=== PATIENT | female | born 1940 | race African-American/Black ===

== ENCOUNTER 2017-03-08 21:21 | Emergency (ER) | payer MEDICAID, MEDICARE ==
[~2017-03-08] VITALS: Ht 160 cm; Wt 125.2 kg
[2017-03-08 23:59] VITALS: BP 157/63
== END 2017-03-09 00:15 | disposition home or self-care (01) ==
LOC: ER 21:42
DX: S00.93XA Contusion of unspecified part of head, initial encounter (principal); J32.9 Chronic sinusitis, unspecified; M19.90 Unspecified osteoarthritis, unspecified site; I10 Essential (primary) hypertension; E11.9 Type 2 diabetes mellitus without complications; W22.8XXA Striking against or struck by other objects, initial encounter; Y93.89 Activity, other specified; Y92.89 Other specified places as the place of occurrence of the external cause; Y99.8 Other external cause status
CPT/HCPCS: 70450; 82962

== ENCOUNTER 2023-11-18 19:49 | Inpatient (IN) | payer MEDICARE, MEDICAID ==
[~2023-11-18] VITALS: Ht 157.5 cm; Wt 119.1 kg
[2023-11-18 21:00] VITALS: RESP 26
[2023-11-18] MEDS: IOHEXOL 350 MG/ML 100ML IJ ONE (21:41)
[2023-11-18] MEDS: ONDANSETRON HCL 4 MG/2 ML VIAL IV ONE (22:20)
[2023-11-18] MEDS: PANTOPRAZOLE 40 MG/10 ML VIAL INJ IV ONE (22:20)
[2023-11-18] MEDS: SODIUM CHLORIDE 0.9% 1,000 ML IV ONE (22:20)
[2023-11-18] MEDS: cefTRIAXone 1GM/50ML D5W 50 ML IV ONE (22:20)
[2023-11-18 22:26] LABS: Basophils # (auto) 0 10 ^3/uL (0-0.2); Basophils % (auto) 0.2 % (0.0-2.0); Eosinophils # (auto) 0 10 ^3/uL (0-0.8); Eosinophils % (auto) 0.1 % (0.0-7.0); Hematocrit 45.5 % (36.0-46.0); Hemoglobin 14.5 g/dL (12.2-16.2); Lymphocytes # (auto) 1.1 10 ^3/uL (0.4-5.4); Lymphocytes % (auto) 9.3 % (10.0-50.0); Mean Corpuscular Hemoglobin 29.7 pg (28.0-32.0); Mean Corpuscular Hgb Conc. 31.9 g/dL (32.0-36.0); Mean Corpuscular Volume 93.2 fL (80.0-100.0); Monocytes # (auto) 0.6 10 ^3/uL (0-1.3); Monocytes % (auto) 5.3 % (0.0-12.0); Neutrophils # (auto) 10.1 10 ^3/uL (1.6-8.6); Neutrophils % (auto) 85.1 % (37.0-80.0); Nucleated Red Blood Cells % 0.1 %; Red Blood Cells 4.88 10^6/uL (4.0-5.20); Red Cell Distribution Width 15.1 % (11.8-14.3); White Blood Cell 11.9 10^3/uL (4.4-10.8)
[2023-11-18 22:42] LABS: Alanine Aminotransferase 19 U/L (7-40); Albumin 4.4 g/dL (3.2-4.8); Alkaline Phosphatase 83 U/L (46-116); Anion Gap 12 (5-15); Aspartate Aminotransferase 51 U/L (13-40); BUN/Creatinine Ratio 12.1 (10.0-20.0); Bilirubin, Total 0.5 mg/dL (0.2-1.0); Blood Alcohol < 3.0 mg/dL (<10); Blood Urea Nitrogen 25 mg/dL (9-23); Calcium 9.2 mg/dL (8.5-10.1); Carbon Dioxide 22 mmol/L (20-30); Chloride 102 mmol/L (98-107); Glucose 166 mg/dL (74-106); Potassium 4.4 mmol/L (3.5-5.1); Sodium 136 mmol/L (136-145); Total Protein 7.6 g/dL (5.7-8.2)
[2023-11-18 22:50] LABS: Salicylate < 3.0 mg/dL (2.8-20.0)
[2023-11-18 22:57] LABS: Lactic Acid w/Reflex 3.1 mmol/L (0.4-2.0)
[2023-11-18 23:04] LABS: Lipase 48 U/L (12-53)
[2023-11-18 23:05] LABS: Magnesium 2.5 mg/dL (1.6-2.6)
[2023-11-18 23:20] LABS: INR 1.01 (0.9-1.15); Partial Thromboplastin Time 24.8 SEC (24.5-34.5); Prothrombin Time 10.6 sec (9.3-11.8)
[2023-11-19] MEDS: SODIUM CHLORIDE 0.9% 3,550 ML IV ONE (03:00)
[2023-11-19 03:15] LABS: Amphetamine Screen, Urine Neg (NEGATIVE); Barbiturate Scree,Urine Neg (NEGATIVE); Benzodiazephine Screen, Urine Neg (NEGATIVE); Cannabinoid Screen, Urine Neg (NEGATIVE); Cocaine Screen, Urine Neg (NEGATIVE); Opiate Scree,Urine Neg (NEGATIVE); Phencyclidine Screen, Urine Neg (NEGATIVE)
[2023-11-19] MEDS ORDERED: VANCOMYCIN PER PHARMACY 0 MG IV SCH (03:15)
[2023-11-19] MEDS ORDERED: SODIUM CHLORIDE 0.9% IV ONE (03:15)
[2023-11-19 03:34] LABS: Urine Bacteria NONE SEEN /hpf (None Seen); Urine Blood Negative /uL (Negative); Urine Clarity HAZY (Clear); Urine Color Yellow (Yellow); Urine Hyaline Cast FEW /lpf (0 - 2); Urine Mucus FEW (None Seen); Urine Protein, UAD 1+ (Negative); Urine Specific Gravity 1.025 (1.001-1.035); Urine WBC 1 /hpf (0 - 5)
[2023-11-19 04:03] LABS: Rapid Influenza B Negative (Negative)
[2023-11-19 04:04] LABS: COVID19 ANTIGEN SOFIA FIA NEGATIVE (NEGATIVE); Rapid Influenza A Positive (Negative)
[2023-11-19] MEDS ORDERED: NITROGLYCERIN 0.4 MG SL TAB SL PRN (04:15)
[2023-11-19] MEDS ORDERED: DEXTROSE (50%) 50ML SYRG IV PRN ×2 (04:15→04:30)
[2023-11-19] MEDS ORDERED: ACETAMINOPHEN 325 MG TAB PO PRN (04:15)
[2023-11-19] MEDS ORDERED: ONDANSETRON HCL 4 MG/2 ML VIAL IV PRN ×2 (04:15→04:30)
[2023-11-19] MEDS ORDERED: SODIUM CHLORIDE 0.9% 1,000 ML IV SCH (04:15)
[2023-11-19] MEDS ORDERED: HYDROcodone-ACET 5/325MG TAB PO PRN ×2 (04:15→04:30)
[2023-11-19] MEDS: VANCOMYCIN 1GM/200ML 200 ML IV SCH (04:33)
[2023-11-19] MEDS: SODIUM CHLORIDE 0.9% 1,000 ML IV SCH ×2 (04:48→16:57)
[2023-11-19 05:37] LABS: Lactic Acid w/Reflex 2.1 mmol/L (0.4-2.0)
[2023-11-19] MEDS: ACETAMINOPHEN 325 MG TAB PO PRN (05:57)
[2023-11-19] MEDS ORDERED: InsuLIN REG 1unit/0.01ml Soln (100units/ml) SC SCH (06:00)
[2023-11-19] MEDS ORDERED: ACCU-CHEK COMFORT CURVE STRIP VI SCH (06:00)
[2023-11-19] MEDS: ACCU-CHEK COMFORT CURVE STRIP VI SCH (06:32)
[2023-11-19] MEDS: LEVOTHYROXINE SODIUM 25 MCG TAB PO SCH (06:34)
[2023-11-19] MEDS: InsuLIN REG 1unit/0.01ml Soln (100units/ml) SC SCH (06:34)
[2023-11-19] MEDS ORDERED: LEVOTHYROXINE SODIUM 25 MCG TAB PO SCH (07:00)
[2023-11-19 07:36] VITALS: PULSE 85; RESP 20; O2SAT 98
[2023-11-19] MEDS ORDERED: cefTRIAXone 1GM/50ML D5W 50 ML IV SCH ×2 (09:00→22:00)
[2023-11-19] MEDS: ASPirin 81 mg TAB PO SCH (09:15)
[2023-11-19] MEDS ORDERED: LORazepam 2MG/ML-1ML VIAL IV PRN (09:45)
[2023-11-19] MEDS ORDERED: ASPirin 81 mg TAB PO SCH (10:00)
[2023-11-19 11:46] LABS: Chloride 109 mmol/L (98-107); Potassium 4.8 mmol/L (3.5-5.1); Sodium 139 mmol/L (136-145)
[2023-11-19 11:47] LABS: Anion Gap 13 (5-15); Carbon Dioxide 17 mmol/L (20-30)
[2023-11-19 11:48] LABS: Calcium 7.9 mg/dL (8.5-10.1)
[2023-11-19 11:52] LABS: Glucose 190 mg/dL (74-106)
[2023-11-19 11:53] LABS: BUN/Creatinine Ratio 14.3 (10.0-20.0); Blood Urea Nitrogen 32 mg/dL (9-23)
[2023-11-19 12:34] LABS: Folate (Folic Acid) 17.25 ng/mL (>5.38)
[2023-11-19 13:41] LABS: CRP High Sensitivity 10.92 mg/dL (<1.0)
[2023-11-19] MEDS ORDERED: metroNIDAZOLE 500MG/100ML 100 ML IV SCH (14:00)
[2023-11-19 14:25] LABS: Magnesium 2.5 mg/dL (1.6-2.6)
[2023-11-19 15:00] VITALS: PULSE 83; RESP 17; O2SAT 97
[2023-11-19] MEDS: DOXYCYCLINE 100MG/250ML 250 ML IV SCH (16:29)
[2023-11-19] MEDS: SODIUM CHLORIDE 0.9% 500 ML IV ONE (16:29)
[2023-11-19] MEDS: OSELTAMIVIR 30 MG CAP PO ONE (16:31)
[2023-11-19 20:00] VITALS: PULSE 88; RESP 17; O2SAT 98
[2023-11-19] MEDS ORDERED: ATORVASTATIN 20 MG TAB PO SCH (22:00)
[2023-11-19] MEDS: PIPERACILLIN-TAZOB 3.375GM 100 ML IV SCH (22:27)
[2023-11-19] MEDS: ATORVASTATIN 20 MG TAB PO SCH (22:27)
[2023-11-20] MEDS: LEVOTHYROXINE SODIUM 50 MCG TAB PO SCH (07:00)
[2023-11-20 07:40] VITALS: RESP 17; O2SAT 97
[2023-11-20 07:57] LABS: Alanine Aminotransferase 19 U/L (7-40); Albumin 3.7 g/dL (3.2-4.8); Alkaline Phosphatase 61 U/L (46-116); Anion Gap 13 (5-15); Aspartate Aminotransferase 64 U/L (13-40); BUN/Creatinine Ratio 15.9 (10.0-20.0); Basophils # (auto) 0 10 ^3/uL (0-0.2); Basophils % (auto) 0.1 % (0.0-2.0); Calcium 8.3 mg/dL (8.5-10.1); Carbon Dioxide 16 mmol/L (20-30); Chloride 110 mmol/L (98-107); Eosinophils # (auto) 0 10 ^3/uL (0-0.8); Eosinophils % (auto) 0.1 % (0.0-7.0); Glucose 190 mg/dL (74-106); Hematocrit 42.1 % (36.0-46.0); Hemoglobin 13.3 g/dL (12.2-16.2); Lymphocytes # (auto) 0.9 10 ^3/uL (0.4-5.4); Lymphocytes % (auto) 8.8 % (10.0-50.0); Mean Corpuscular Hemoglobin 29.3 pg (28.0-32.0); Mean Corpuscular Hgb Conc. 31.5 g/dL (32.0-36.0); Mean Corpuscular Volume 92.9 fL (80.0-100.0); Monocytes # (auto) 1.4 10 ^3/uL (0-1.3); Monocytes % (auto) 14.2 % (0.0-12.0); Neutrophils # (auto) 7.7 10 ^3/uL (1.6-8.6); Neutrophils % (auto) 76.8 % (37.0-80.0); Potassium 4.8 mmol/L (3.5-5.1); Red Blood Cells 4.53 10^6/uL (4.0-5.20); Red Cell Distribution Width 15.1 % (11.8-14.3); Sodium 139 mmol/L (136-145)
[2023-11-20 07:58] LABS: Bilirubin, Total 0.5 mg/dL (0.2-1.0); Blood Urea Nitrogen 46 mg/dL (9-23); Phosphorus 6.2 mg/dL (2.4-5.1); Total Protein 6.4 g/dL (5.7-8.2)
[2023-11-20 08:06] LABS: Free Thyroxine Index 1.6 (1.2-4.9); Thyroxine (T4) 4.9 ug/dL (4.5-12.0)
[2023-11-20 08:06] LABS: CRP High Sensitivity > 20.00 mg/dL (<1.0)
[2023-11-20 08:57] LABS: Magnesium 2.7 mg/dL (1.6-2.6)
[2023-11-20 09:02] LABS: Base Excess -9.8 mmol/L (-2.0-2.0)
[2023-11-20] MEDS: OSELTAMIVIR 30 MG CAP PO SCH (10:00)
[2023-11-20] MEDS: PANTOPRAZOLE 40 MG/10 ML VIAL INJ IV SCH (10:00)
[2023-11-20] MEDS: SODIUM CHLORIDE 0.9% 1,000 ML IV ONE (11:00)
[2023-11-20] MEDS: SODIUM BICARB 8.4% 50Meq/50ml SYR Vial IV ONE (18:46)
[2023-11-20 18:58] LABS: Creatinine, Urine 121.96 mg/dL (30.0-125.0)
[2023-11-20 20:00] VITALS: PULSE 91; RESP 19; O2SAT 96
[2023-11-21 05:08] LABS: Basophils # (auto) 0 10 ^3/uL (0-0.2); Basophils % (auto) 0.1 % (0.0-2.0); Eosinophils # (auto) 0 10 ^3/uL (0-0.8); Hematocrit 37.4 % (36.0-46.0); Lymphocytes # (auto) 0.8 10 ^3/uL (0.4-5.4); Lymphocytes % (auto) 10.3 % (10.0-50.0); Mean Corpuscular Hemoglobin 29.5 pg (28.0-32.0); Mean Corpuscular Volume 92.1 fL (80.0-100.0); Monocytes # (auto) 0.8 10 ^3/uL (0-1.3); Monocytes % (auto) 11.3 % (0.0-12.0); Neutrophils # (auto) 5.8 10 ^3/uL (1.6-8.6); Neutrophils % (auto) 78.3 % (37.0-80.0); Red Blood Cells 4.06 10^6/uL (4.0-5.20); Red Cell Distribution Width 15.6 % (11.8-14.3); White Blood Cell 7.4 10^3/uL (4.4-10.8)
[2023-11-21 05:20] LABS: Alanine Aminotransferase 30 U/L (7-40); Alkaline Phosphatase 51 U/L (46-116); Anion Gap 12 (5-15); BUN/Creatinine Ratio 11.9 (10.0-20.0); Calcium 7.8 mg/dL (8.7-10.4); Carbon Dioxide 16 mmol/L (20-30); Chloride 111 mmol/L (98-107); Glucose 176 mg/dL (74-106); Potassium 4.5 mmol/L (3.5-5.1); Sodium 139 mmol/L (136-145)
[2023-11-21 05:21] LABS: Albumin 3.2 g/dL (3.2-4.8); Aspartate Aminotransferase 119 U/L (13-40); Bilirubin, Total 0.6 mg/dL (0.2-1.0); Total Protein 5.9 g/dL (5.7-8.2)
[2023-11-21 05:24] LABS: Blood Urea Nitrogen 62 mg/dL (9-23)
[2023-11-21 05:32] LABS: Creatine Kinase IFCC 3542 U/L (34-145)
[2023-11-21 06:19] LABS: CRP High Sensitivity > 20.00 mg/dL (<1.0)
[2023-11-21 08:00] VITALS: PULSE 87; RESP 22; O2SAT 95
[2023-11-21] MEDS: CYANOCOBALAMIN 500 MCG TAB PO SCH (10:00)
[2023-11-21] MEDS ORDERED: VANCOMYCIN PER PHARMACY 0 MG IV SCH (10:15)
[2023-11-21 11:15] LABS: Base Excess -10.3 mmol/L (-2.0-2.0)
[2023-11-21] MEDS ORDERED: SUCRALFATE 1 GM/10 ML ORAL SUSP GT SCH (11:30)
[2023-11-21] MEDS: SODIUM CHLORIDE 0.9% 1,000 ML IV SCH (11:36)
[2023-11-21] MEDS: PANTOPRAZOLE 40 MG/10 ML VIAL INJ IV SCH (11:37)
[2023-11-21] MEDS: LEVOTHYROXINE SODIUM 100 MCG/5 ML INJ IV SCH (11:37)
[2023-11-21] MEDS: CYANOCOBALAMIN (B-12) 1000 MCG/1 ML VIAL IM ONE (11:37)
[2023-11-21] MEDS: cefTRIAXone 2GM/50ML D5W 50 ML IV ONE (11:38)
[2023-11-21] MEDS: AMPICILLIN SOD 2GM INJ 2 GM in SODIUM CHL 0.9% 100 ML IV ONE (12:04)
[2023-11-21] MEDS: SODIUM BICARB 8.4% 50Meq/50ml SYR Vial IV ONE ×2 (14:00→18:38)
[2023-11-21] MEDS: VANCOMYCIN 1GM/200ML 200 ML IV ONE (15:00)
[2023-11-21] MEDS: SODIUM BICARB 50mEq/50ml Vial 150 ML in D5W 5% 1,000 ML IV SCH (20:23)
[2023-11-21] MEDS: cefTRIAXone 2GM/50ML D5W 50 ML IV SCH (21:26)
[2023-11-21] MEDS: AMPICILLIN SOD 2GM INJ 2 GM in SODIUM CHL 0.9% 100 ML IV SCH (22:00)
[2023-11-22 05:15] LABS: Hematocrit 34.3 % (36.0-46.0); Hemoglobin 11.2 g/dL (12.2-16.2); Mean Corpuscular Hemoglobin 29.9 pg (28.0-32.0); Mean Corpuscular Hgb Conc. 32.7 g/dL (32.0-36.0); Mean Corpuscular Volume 91.3 fL (80.0-100.0); Red Blood Cells 3.76 10^6/uL (4.0-5.20); Red Cell Distribution Width 15.3 % (11.8-14.3); White Blood Cell 6.4 10^3/uL (4.4-10.8)
[2023-11-22 05:21] LABS: Alanine Aminotransferase 37 U/L (7-40); Alkaline Phosphatase 56 U/L (46-116); Anion Gap 16 (5-15); Aspartate Aminotransferase 134 U/L (13-40); BUN/Creatinine Ratio 14.9 (10.0-20.0); Bilirubin, Total 0.4 mg/dL (0.2-1.0); Calcium 7.8 mg/dL (8.7-10.4); Carbon Dioxide 19 mmol/L (20-30); Chloride 109 mmol/L (98-107); Glucose 187 mg/dL (74-106); Magnesium 3.2 mg/dL (1.6-2.6); Phosphorus 8.4 mg/dL (2.4-5.1); Potassium 4.5 mmol/L (3.5-5.1); Sodium 144 mmol/L (136-145); Total Protein 5.5 g/dL (5.7-8.2)
[2023-11-22 05:28] LABS: Basophils % (manual) 0 (0.0-2.0); Blast Cells 0; Eosinophils % (manual) 0 (0-7); Promyelocytes % 0; Reactive Lymphocytes 0
[2023-11-22 05:30] LABS: INR 0.97 (0.9-1.15); Partial Thromboplastin Time 37.8 SEC (24.5-34.5); Prothrombin Time 10.2 sec (9.3-11.8)
[2023-11-22 05:32] LABS: Creatine Kinase IFCC 2659 U/L (34-145)
[2023-11-22 05:46] LABS: Blood Urea Nitrogen 104 mg/dL (9-23)
[2023-11-22 07:06] LABS: RPR Non Reactive (Non Reactive)
[2023-11-22 07:45] VITALS: PULSE 89; RESP 18; O2SAT 98
[2023-11-22 08:11] LABS: Band Neutrophils % (manual) 1; Lymphocytes % (manual) 12 (10.0-50.0); Metamyelocytes % 1; Monocytes % (manual) 16 (0-12); Myelocytes % 2
[2023-11-22 08:12] LABS: Platelet Estimate Adequate; RBC Morphology Normal
[2023-11-22 08:19] LABS: Hepatitis B Surface Antigen Negative (Negative)
[2023-11-22 08:41] LABS: Hepatitis B Core IgM Negative; Hepatitis C Antibody Negative (Negative)
[2023-11-22] MEDS ORDERED: SODIUM CHLORIDE 0.9% 1,000 ML IV SCH (09:00)
[2023-11-22 11:45] LABS: Hepatitis A Ab IgM Positive
[2023-11-22] MEDS: THIAMINE 100mg/ml INJ (200mg/2ml VIAL) IV SCH (11:46)
[2023-11-22] MEDS: HYDROmorphone HCL 2 MG/ML VL/or syr IV ONE (15:51)
[2023-11-22] MEDS: MORPHINE SULFATE INJ 2 MG/ml SYRG IV PRN (18:15)
[2023-11-22 19:30] VITALS: PULSE 87; RESP 14; O2SAT 99
[2023-11-22] MEDS: MIDAZOLAM HCL 2MG/2ML 2ml VIAL (1mg/ml) ONE (20:10)
[2023-11-22] MEDS: fentaNYL CITRATE 100 MCG/2 ML VL ONE (20:10)
[2023-11-23] VITALS (46 sets, daily range): BP systolic 106–153; BP diastolic 26–64; PULSE 81–129; RESP 14–24; TEMP 97.5–97.7; O2SAT 76–100
[2023-11-23] MEDS: ACETAMINOPHEN 650 MG RECT SUPP PR ONE
[2023-11-23 05:51] LABS: Base Excess -8.6 mmol/L (-2.0-2.0)
[2023-11-23] MEDS: AMIODARONE 450mg/250ml AE 250 ML IV SCH ×2 (07:00→15:22)
[2023-11-23] MEDS: NOREPINEPHRINE 8 MG/250ML KIT 250 ML IV ONE (08:11)
[2023-11-23] MEDS: NOREPINEPHRINE 8 MG/250ML KIT 250 ML IV SCH (09:01)
[2023-11-23 09:13] LABS: Basophils # (auto) 0 10 ^3/uL (0-0.2); Basophils % (auto) 0.2 % (0.0-2.0); Eosinophils # (auto) 0 10 ^3/uL (0-0.8); Eosinophils % (auto) 0.2 % (0.0-7.0); Hematocrit 35.8 % (36.0-46.0); Hemoglobin 11.5 g/dL (12.2-16.2); Lymphocytes # (auto) 0.6 10 ^3/uL (0.4-5.4); Lymphocytes % (auto) 6.9 % (10.0-50.0); Mean Corpuscular Hemoglobin 29.4 pg (28.0-32.0); Mean Corpuscular Hgb Conc. 32.1 g/dL (32.0-36.0); Mean Corpuscular Volume 91.4 fL (80.0-100.0); Monocytes # (auto) 0.9 10 ^3/uL (0-1.3); Monocytes % (auto) 9.9 % (0.0-12.0); Neutrophils # (auto) 7.6 10 ^3/uL (1.6-8.6); Neutrophils % (auto) 82.8 % (37.0-80.0); Nucleated Red Blood Cells % 0.2 %; Red Blood Cells 3.92 10^6/uL (4.0-5.20); Red Cell Distribution Width 15.7 % (11.8-14.3); White Blood Cell 9.2 10^3/uL (4.4-10.8)
[2023-11-23 09:26] LABS: Alanine Aminotransferase 43 U/L (7-40); Alkaline Phosphatase 59 U/L (46-116); Anion Gap 19 (5-15); Aspartate Aminotransferase 123 U/L (13-40); BUN/Creatinine Ratio 14.9 (10.0-20.0); Bilirubin, Total 0.3 mg/dL (0.2-1.0); Calcium 8.4 mg/dL (8.5-10.1); Carbon Dioxide 19 mmol/L (20-30); Chloride 107 mmol/L (98-107); Glucose 162 mg/dL (74-106); Potassium 4.4 mmol/L (3.5-5.1); Sodium 145 mmol/L (136-145); Total Protein 5.1 g/dL (5.7-8.2)
[2023-11-23 09:29] LABS: Blood Urea Nitrogen 127 mg/dL (9-23); INR 1.11 (0.9-1.15); Partial Thromboplastin Time 25.9 SEC (24.5-34.5); Prothrombin Time 11.6 sec (9.3-11.8)
[2023-11-23] MEDS: GASTROGRAFIN 120 ML SOL ONE (10:16)
[2023-11-23 10:17] LABS: Magnesium 3.3 mg/dL (1.6-2.6)
[2023-11-23] MEDS ORDERED: ROCURONIUM 10MG/ML 10ML VIAL IV ONE ×2 (11:40→13:44)
[2023-11-23] MEDS ORDERED: KETAMINE 50mg/ML 10ml Vial 10 ML ONE (11:40)
[2023-11-23] MEDS ORDERED: MEPERIDINE HCL (50 MG/ML) 1 ML VIAL ONE (11:40)
[2023-11-23] MEDS ORDERED: ETOMIDATE (2MG/ML) 20ML VIAL IV ONE (11:40)
[2023-11-23] MEDS ORDERED: MIDAZOLAM HCL 2MG/2ML 2ml VIAL (1mg/ml) ONE ×2 (11:40→13:44)
[2023-11-23] MEDS ORDERED: MORPHINE SULF PF 5 MG/10 ML VIAL ONE (11:40)
[2023-11-23] MEDS ORDERED: fentaNYL CITRATE 100 MCG/2 ML VL ONE (11:40)
[2023-11-23] MEDS ORDERED: HYDROmorphone HCL 2 MG/ML VL/or syr ONE (13:44)
[2023-11-23] MEDS: metroNIDAZOLE 500MG/100ML 100 ML IV SCH (14:00)
[2023-11-23] MEDS: MIDAZOLAM DRIP 50 mg/50mL 50 ML IV SCH (14:15)
[2023-11-23] MEDS: HYDROmorphone HCL 2 MG/ML VL/or syr IV ONE (14:15)
[2023-11-23] MEDS: fentaNYL Drip 2500mCg/250mlNS 250 ML IV SCH (15:30)
[2023-11-23] MEDS: PROPOFOL 100 ML IV SCH (15:30)
[2023-11-23 16:11] LABS: Base Excess -9.7 mmol/L (-2.0-2.0)
[2023-11-23] MEDS: cefTRIAXone 2GM/50ML D5W 50 ML IV SCH (16:42)
[2023-11-23] MEDS: VANCOMYCIN 500 MG in D5W 5% 100 ML IV ONE (17:00)
[2023-11-23] MEDS: SODIUM BICARB 8.4% 50Meq/50ml SYR Vial IV ONE (17:15)
[2023-11-23] MEDS: FOLIC ACID 1 MG, MULTIPLE VITAMIN 10 ML, THIAMINE INJ 100 MG in D5W/SOD CHL 0.45% 1,000 ML INJ ONE (18:00)
[2023-11-23 21:55] LABS: Urine Bacteria MANY /hpf (None Seen); Urine Blood 3+ /uL (Negative); Urine Clarity CLOUDY (Clear); Urine Color Red (Yellow); Urine Protein, UAD 2+ (Negative); Urine Specific Gravity 1.021 (1.001-1.035); Urine Urobilinogen Normal (Negative); Urine WBC 127 /hpf (0 - 5); Urine WBC Clumps PRESENT /hpf (None Seen); Urine pH 5.5 (5.0-8.0)
[2023-11-24] VITALS (107 sets, daily range): BP systolic 101–178; BP diastolic 22–73; PULSE 73–89; RESP 12–28; TEMP 97.7–98.2; O2SAT 90–100
[2023-11-24] MEDS: SODIUM BICARB 8.4% 50Meq/50ml SYR Vial IV ONE (00:34)
[2023-11-24 04:09] LABS: Hematocrit 29.7 % (36.0-46.0); Hemoglobin 9.8 g/dL (12.2-16.2); Mean Corpuscular Hemoglobin 29.8 pg (28.0-32.0); Mean Corpuscular Hgb Conc. 33.2 g/dL (32.0-36.0); Mean Corpuscular Volume 89.7 fL (80.0-100.0); Red Blood Cells 3.31 10^6/uL (4.0-5.20); Red Cell Distribution Width 15.4 % (11.8-14.3); White Blood Cell 10.6 10^3/uL (4.4-10.8)
[2023-11-24 04:14] LABS: Alanine Aminotransferase 29 U/L (7-40); Albumin 2.6 g/dL (3.2-4.8); Alkaline Phosphatase 53 U/L (46-116); Anion Gap 17 (5-15); Aspartate Aminotransferase 70 U/L (13-40); BUN/Creatinine Ratio 12.6 (10.0-20.0); Bilirubin, Total 0.2 mg/dL (0.2-1.0); Calcium 7.7 mg/dL (8.7-10.4); Carbon Dioxide 22 mmol/L (20-30); Chloride 103 mmol/L (98-107); Glucose 305 mg/dL (74-106); Magnesium 2.9 mg/dL (1.6-2.6); Phosphorus 8.4 mg/dL (2.4-5.1); Sodium 142 mmol/L (136-145); Total Protein 5.1 g/dL (5.7-8.2)
[2023-11-24 04:18] LABS: Basophils % (manual) 0 (0.0-2.0); Blast Cells 0; Eosinophils % (manual) 0 (0-7); Metamyelocytes % 0; Myelocytes % 0; Promyelocytes % 0; Reactive Lymphocytes 0
[2023-11-24 04:19] LABS: Blood Urea Nitrogen 103 mg/dL (9-23)
[2023-11-24 04:27] LABS: INR 1.06 (0.9-1.15); Partial Thromboplastin Time 37.6 SEC (24.5-34.5); Prothrombin Time 11.1 sec (9.3-11.8)
[2023-11-24 04:35] LABS: Band Neutrophils % (manual) 49; Lymphocytes % (manual) 13 (10.0-50.0); Monocytes % (manual) 8 (0-12); Platelet Estimate Adequate
[2023-11-24] MEDS: MORPHINE SULFATE 4 MG/ML SYR/VIAL IV PRN (06:01)
[2023-11-24 07:15] LABS: Base Excess -4.4 mmol/L (-2.0-2.0)
[2023-11-24] MEDS: FOLIC ACID 1 MG, MULTIPLE VITAMIN 10 ML, MAGNESIUM SULF SDV 50% 8 MEQ, THIAMINE INJ 100... INJ SCH (15:25)
[2023-11-24] MEDS ORDERED: VANCOMYCIN 500 MG in D5W 5% 100 ML IV ONE (22:00)
[2023-11-25] VITALS (108 sets, daily range): BP systolic 67–178; BP diastolic 24–64; PULSE 71–132; RESP 13–20; TEMP 97.8–98.8; O2SAT 89–100
[2023-11-25 04:25] LABS: Alanine Aminotransferase 24 U/L (7-40); Alkaline Phosphatase 66 U/L (46-116); Anion Gap 16 (5-15); BUN/Creatinine Ratio 12.5 (10.0-20.0); Calcium 7.7 mg/dL (8.7-10.4); Carbon Dioxide 23 mmol/L (20-30); Chloride 102 mmol/L (98-107); Glucose 150 mg/dL (74-106); Lipase 36 U/L (12-53); Potassium 3.9 mmol/L (3.5-5.1); Sodium 141 mmol/L (136-145)
[2023-11-25 04:26] LABS: Albumin 2.5 g/dL (3.2-4.8)
[2023-11-25 04:27] LABS: Aspartate Aminotransferase 62 U/L (13-40); Bilirubin, Total < 0.2 mg/dL (0.2-1.0); Total Protein 4.8 g/dL (5.7-8.2)
[2023-11-25 04:28] LABS: Basophils # (auto) 0 10 ^3/uL (0-0.2); Eosinophils # (auto) 0.1 10 ^3/uL (0-0.8); Hemoglobin 8.2 g/dL (12.2-16.2); Mean Corpuscular Hemoglobin 29.8 pg (28.0-32.0); Monocytes # (auto) 0.6 10 ^3/uL (0-1.3); Nucleated Red Blood Cells % 0.1 %; White Blood Cell 13.4 10^3/uL (4.4-10.8)
[2023-11-25 04:31] LABS: Basophils % (auto) 0.1 % (0.0-2.0); Hematocrit 24.7 % (36.0-46.0); Lymphocytes % (auto) 7.5 % (10.0-50.0); Mean Corpuscular Hgb Conc. 33.3 g/dL (32.0-36.0); Mean Corpuscular Volume 89.6 fL (80.0-100.0); Monocytes % (auto) 4.6 % (0.0-12.0); Neutrophils # (auto) 11.6 10 ^3/uL (1.6-8.6); Neutrophils % (auto) 86.8 % (37.0-80.0); Red Blood Cells 2.75 10^6/uL (4.0-5.20); Red Cell Distribution Width 15.2 % (11.8-14.3)
[2023-11-25 05:07] LABS: Blood Urea Nitrogen 106 mg/dL (9-23)
[2023-11-25 05:24] LABS: INR 1.02 (0.9-1.15); Prothrombin Time 10.7 sec (9.3-11.8)
[2023-11-25 06:32] LABS: Triglycerides 90 mg/dL (< 150)
[2023-11-25 06:33] LABS: LDL Cholesterol 20 mg/dL (< 100)
[2023-11-25 06:34] LABS: Cholesterol 75 mg/dL (< 200); HDL Cholesterol 17 mg/dL (40-59)
[2023-11-25] MEDS: VANCOMYCIN 500 MG in D5W 5% 100 ML IV ONE (10:48)
[2023-11-26] VITALS (104 sets, daily range): BP systolic 53–200; BP diastolic 21–64; PULSE 63–97; RESP 12–32; TEMP 97.8–99.8; O2SAT 90–100
[2023-11-26 04:51] LABS: Red Cell Distribution Width 15.4 % (11.8-14.3)
[2023-11-26 04:53] LABS: Hematocrit 24.4 % (36.0-46.0); Mean Corpuscular Hemoglobin 29.5 pg (28.0-32.0); Mean Corpuscular Hgb Conc. 32.8 g/dL (32.0-36.0); Red Blood Cells 2.71 10^6/uL (4.0-5.20); White Blood Cell 17.2 10^3/uL (4.4-10.8)
[2023-11-26 04:58] LABS: Alanine Aminotransferase 22 U/L (7-40); Albumin 2.4 g/dL (3.2-4.8); Alkaline Phosphatase 101 U/L (46-116); Anion Gap 16 (5-15); Aspartate Aminotransferase 50 U/L (13-40); BUN/Creatinine Ratio 11.8 (10.0-20.0); Calcium 7.7 mg/dL (8.7-10.4); Carbon Dioxide 22 mmol/L (20-30); Chloride 102 mmol/L (98-107); Glucose 154 mg/dL (74-106); Magnesium 3.1 mg/dL (1.6-2.6); Potassium 3.6 mmol/L (3.5-5.1); Sodium 140 mmol/L (136-145)
[2023-11-26 04:59] LABS: Bilirubin, Total 0.2 mg/dL (0.2-1.0); Total Protein 4.9 g/dL (5.7-8.2)
[2023-11-26 05:08] LABS: Basophils % (manual) 0 (0.0-2.0); Blast Cells 0; Metamyelocytes % 0; Myelocytes % 0; Promyelocytes % 0; Reactive Lymphocytes 0
[2023-11-26 05:18] LABS: Blood Urea Nitrogen 107 mg/dL (9-23)
[2023-11-26 06:41] LABS: Band Neutrophils % (manual) 11; Eosinophils % (manual) 2 (0-7); Lymphocytes % (manual) 9 (10.0-50.0)
[2023-11-26 06:42] LABS: Monocytes % (manual) 7 (0-12); Platelet Estimate Adequate
[2023-11-26 07:03] LABS: Base Excess -6.1 mmol/L (-2.0-2.0)
[2023-11-26] MEDS: DOPamine 1600MCG/ML D5W 250 ML IV SCH (12:00)
[2023-11-26] MEDS: fentaNYL CITRATE 100 MCG/2 ML VL ONE (12:39)
[2023-11-26] MEDS: HEPARIN 1,000 UNITS/ml 1ML VIAL ONE (13:02)
[2023-11-26] MEDS: fentaNYL CITRATE 100 MCG/2 ML VL IV ONE (13:30)
[2023-11-26] MEDS: HEPARIN 1,000 UNITS/ml 1ML VIAL IV ONE (13:30)
[2023-11-26] MEDS: CALCIUM ACETATE 667 MG CAP NG SCH (14:00)
[2023-11-26 17:23] LABS: Hemoglobin 7.9 g/dL (12.2-16.2)
[2023-11-26 17:26] LABS: Hematocrit 24.9 % (36.0-46.0)
[2023-11-26] MEDS: VANCOMYCIN 1GM/200ML 200 ML IV ONE (18:22)
[2023-11-27] VITALS (106 sets, daily range): BP systolic 93–164; BP diastolic 22–56; PULSE 62–82; RESP 11–26; TEMP 96.8–98.6; O2SAT 91–100
[2023-11-27 04:13] LABS: Hemoglobin 8.1 g/dL (12.2-16.2)
[2023-11-27 04:16] LABS: Hematocrit 24.7 % (36.0-46.0); Mean Corpuscular Hemoglobin 29.4 pg (28.0-32.0); Mean Corpuscular Hgb Conc. 32.6 g/dL (32.0-36.0); Mean Corpuscular Volume 90.1 fL (80.0-100.0); Red Blood Cells 2.75 10^6/uL (4.0-5.20); Red Cell Distribution Width 15.3 % (11.8-14.3); White Blood Cell 14.2 10^3/uL (4.4-10.8)
[2023-11-27 04:17] LABS: Basophils % (manual) 0 (0.0-2.0); Blast Cells 0; Eosinophils % (manual) 0 (0-7); Myelocytes % 0; Promyelocytes % 0; Reactive Lymphocytes 0
[2023-11-27 04:27] LABS: Alanine Aminotransferase 23 U/L (7-40); Albumin 2.4 g/dL (3.2-4.8); Alkaline Phosphatase 96 U/L (46-116); Anion Gap 17 (5-15); Aspartate Aminotransferase 48 U/L (13-40); BUN/Creatinine Ratio 12.4 (10.0-20.0); Bilirubin, Total < 0.2 mg/dL (0.2-1.0); Calcium 7.6 mg/dL (8.7-10.4); Carbon Dioxide 20 mmol/L (20-30); Chloride 102 mmol/L (98-107); Glucose 152 mg/dL (74-106); Magnesium 3.1 mg/dL (1.6-2.6); Potassium 3.8 mmol/L (3.5-5.1); Sodium 139 mmol/L (136-145)
[2023-11-27 04:48] LABS: Blood Urea Nitrogen 115 mg/dL (9-23)
[2023-11-27 06:11] LABS: Band Neutrophils % (manual) 12; Lymphocytes % (manual) 5 (10.0-50.0); Metamyelocytes % 1; Monocytes % (manual) 2 (0-12); Platelet Estimate Adequate
[2023-11-27] MEDS: SODIUM CHL 0.9% 1000 ML BAG XX ONE (08:00)
[2023-11-27] MEDS ORDERED: LIDOCAINE 2% JELLY 11ml (GLYDO) ONE (08:14)
[2023-11-27] MEDS ORDERED: LIDOCAINE 2%HCL (LOCAL ANESTH.) INJ 20ML MDV ONE (08:14)
[2023-11-27] MEDS ORDERED: GLYCOPYRROLATE 0.2 MG/ML 1ML VIAL ONE (08:15)
[2023-11-27] MEDS ORDERED: MIDAZOLAM HCL 5 MG/ML-1ML VIAL ONE (08:15)
[2023-11-27] MEDS ORDERED: EPINEPHrine HCL 1 MG/1 ML AMP ONE (08:15)
[2023-11-27] MEDS ORDERED: fentaNYL CITRATE 100 MCG/2 ML VL ONE (08:16)
[2023-11-27] MEDS ORDERED: FLUMAZENIL 0.1 MG/ML INJ 10ML MDV IV ONE (08:17)
[2023-11-27] MEDS ORDERED: NALOXONE HCL 0.4 MG/ML VIAL ONE (08:17)
[2023-11-27] MEDS ORDERED: TPN PER PHARMACY 0 ML IV SCH (09:45)
[2023-11-27] MEDS: VANCOMYCIN 500 MG in D5W 5% 100 ML IV ONE (18:47)
[2023-11-27] MEDS: EPOETIN ALFA-EPBX 10,000 UNIT/1ML VIAL SC ONE (21:00)
[2023-11-27] MEDS: TPN*HIGH CONC* PER PHARMACY IV NR (22:27)
[2023-11-28] VITALS (111 sets, daily range): BP systolic 95–236; BP diastolic 4–56; PULSE 66–85; RESP 12–22; TEMP 97.7–99.2; O2SAT 94–100
[2023-11-28 03:50] LABS: Red Cell Distribution Width 15.3 % (11.8-14.3); White Blood Cell 13.2 10^3/uL (4.4-10.8)
[2023-11-28 03:53] LABS: Hematocrit 24.8 % (36.0-46.0); Hemoglobin 8.1 g/dL (12.2-16.2); Mean Corpuscular Hemoglobin 29.6 pg (28.0-32.0); Mean Corpuscular Hgb Conc. 32.6 g/dL (32.0-36.0); Red Blood Cells 2.72 10^6/uL (4.0-5.20)
[2023-11-28 04:07] LABS: Basophils % (manual) 0 (0.0-2.0); Blast Cells 0; Myelocytes % 0; Promyelocytes % 0; Reactive Lymphocytes 0
[2023-11-28 04:11] LABS: Alanine Aminotransferase 25 U/L (7-40); Albumin 2.6 g/dL (3.2-4.8); Alkaline Phosphatase 94 U/L (46-116); Anion Gap 18 (5-15); Aspartate Aminotransferase 45 U/L (13-40); BUN/Creatinine Ratio 12.3 (10.0-20.0); Calcium 7.6 mg/dL (8.7-10.4); Carbon Dioxide 19 mmol/L (20-30); Chloride 102 mmol/L (98-107); Glucose 184 mg/dL (74-106); Magnesium 3.1 mg/dL (1.6-2.6); Phosphorus 10.4 mg/dL (2.4-5.1); Potassium 3.6 mmol/L (3.5-5.1); Sodium 139 mmol/L (136-145)
[2023-11-28 04:12] LABS: Bilirubin, Total 0.2 mg/dL (0.2-1.0); Total Protein 5.2 g/dL (5.7-8.2)
[2023-11-28 04:36] LABS: Blood Urea Nitrogen 116 mg/dL (9-23)
[2023-11-28 04:51] LABS: Band Neutrophils % (manual) 5; Eosinophils % (manual) 3 (0-7); Lymphocytes % (manual) 4 (10.0-50.0); Metamyelocytes % 2; Monocytes % (manual) 6 (0-12); Platelet Estimate Adequate
[2023-11-28] MEDS: hydrALAZINE HCL 20 MG/ML VL IV PRN (05:39)
[2023-11-28 09:14] LABS: Base Excess -5.1 mmol/L (-2.0-2.0)
[2023-11-28] MEDS: ALBUMIN 25% 100 ML IV ONE (17:00)
[2023-11-28] MEDS ORDERED: DEXTROSE (50%) 50ML SYRG IV SCH (18:00)
[2023-11-28] MEDS: ACCU-CHEK COMFORT CURVE STRIP VI SCH (18:39)
[2023-11-28] MEDS: InsuLIN REG 1unit/0.01ml Soln (100units/ml) SC SCH (18:43)
[2023-11-28] MEDS: TPN*HIGH CONC* PER PHARMACY IV NR (23:16)
[2023-11-29] VITALS (115 sets, daily range): BP systolic 17–215; BP diastolic 23–123; PULSE 71–92; RESP 13–28; TEMP 98.1–98.6; O2SAT 81–100
[2023-11-29 04:16] LABS: Hemoglobin 7.8 g/dL (12.2-16.2)
[2023-11-29 04:18] LABS: Hematocrit 24.4 % (36.0-46.0); Mean Corpuscular Hemoglobin 28.8 pg (28.0-32.0); Mean Corpuscular Volume 90.1 fL (80.0-100.0); Red Blood Cells 2.71 10^6/uL (4.0-5.20); White Blood Cell 13.4 10^3/uL (4.4-10.8)
[2023-11-29 04:40] LABS: Alanine Aminotransferase 26 U/L (7-40); Albumin 2.7 g/dL (3.2-4.8); Alkaline Phosphatase 90 U/L (46-116); Anion Gap 13 (5-15); Aspartate Aminotransferase 42 U/L (13-40); BUN/Creatinine Ratio 12.9 (10.0-20.0); Calcium 7.6 mg/dL (8.7-10.4); Carbon Dioxide 25 mmol/L (20-30); Chloride 103 mmol/L (98-107); Glucose 141 mg/dL (74-106); Magnesium 2.4 mg/dL (1.6-2.6); Potassium 3.6 mmol/L (3.5-5.1); Sodium 141 mmol/L (136-145)
[2023-11-29 04:41] LABS: Bilirubin, Total 0.2 mg/dL (0.2-1.0)
[2023-11-29 04:42] LABS: Total Protein 5.4 g/dL (5.7-8.2)
[2023-11-29 04:47] LABS: Basophils % (manual) 0 (0.0-2.0); Blast Cells 0; Metamyelocytes % 0; Myelocytes % 0; Promyelocytes % 0; Reactive Lymphocytes 0
[2023-11-29 05:04] LABS: Blood Urea Nitrogen 87 mg/dL (9-23)
[2023-11-29 06:08] LABS: Band Neutrophils % (manual) 8; Eosinophils % (manual) 2 (0-7); Lymphocytes % (manual) 7 (10.0-50.0); Monocytes % (manual) 5 (0-12); Platelet Estimate Adequate
[2023-11-29] MEDS ORDERED: LIDOCAINE 2%HCL (LOCAL ANESTH.) INJ 20ML MDV ONE (14:24)
[2023-11-29] MEDS ORDERED: SODIUM CHLORIDE LOCK 10 ML ONE (14:24)
[2023-11-29] MEDS ORDERED: MIDAZOLAM HCL 5 MG/ML-1ML VIAL ONE (14:25)
[2023-11-29] MEDS ORDERED: EPINEPHrine HCL 1 MG/1 ML AMP ONE (14:25)
[2023-11-29] MEDS ORDERED: GLYCOPYRROLATE 0.2 MG/ML 1ML VIAL ONE (14:25)
[2023-11-29] MEDS ORDERED: fentaNYL CITRATE 100 MCG/2 ML VL ONE (14:26)
[2023-11-29 15:52] LABS: Base Excess 1.8 mmol/L (-2.0-2.0)
[2023-11-29] MEDS ORDERED: hydrALAZINE HCL 20 MG/ML VL IV SCH (18:00)
[2023-11-29] MEDS: TPN*HIGH CONC* PER PHARMACY IV NR (22:11)
[2023-11-30] VITALS (107 sets, daily range): BP systolic 82–186; BP diastolic 34–109; PULSE 72–95; RESP 11–25; TEMP 89.6–99.2; O2SAT 95–100
[2023-11-30 03:59] LABS: Hematocrit 24.9 % (36.0-46.0); Mean Corpuscular Hemoglobin 29.5 pg (28.0-32.0); Mean Corpuscular Hgb Conc. 32.4 g/dL (32.0-36.0); Mean Corpuscular Volume 91.1 fL (80.0-100.0); Red Blood Cells 2.73 10^6/uL (4.0-5.20); Red Cell Distribution Width 14.7 % (11.8-14.3); White Blood Cell 14.8 10^3/uL (4.4-10.8)
[2023-11-30 04:04] LABS: Basophils % (manual) 0 (0.0-2.0); Blast Cells 0; Eosinophils % (manual) 0 (0-7); Myelocytes % 0; Promyelocytes % 0; Reactive Lymphocytes 0
[2023-11-30 04:16] LABS: Alanine Aminotransferase 28 U/L (7-40); Albumin 2.9 g/dL (3.2-4.8); Alkaline Phosphatase 89 U/L (46-116); Anion Gap 10 (5-15); Aspartate Aminotransferase 41 U/L (13-40); BUN/Creatinine Ratio 12.3 (10.0-20.0); Bilirubin, Total 0.2 mg/dL (0.2-1.0); Calcium 7.9 mg/dL (8.7-10.4); Carbon Dioxide 25 mmol/L (20-30); Chloride 104 mmol/L (98-107); Glucose 196 mg/dL (74-106); Magnesium 2.1 mg/dL (1.6-2.6); Phosphorus 5.4 mg/dL (2.4-5.1); Potassium 3.6 mmol/L (3.5-5.1); Sodium 139 mmol/L (136-145); Total Protein 5.8 g/dL (5.7-8.2)
[2023-11-30 04:33] LABS: Blood Urea Nitrogen 68 mg/dL (9-23)
[2023-11-30 06:30] LABS: Band Neutrophils % (manual) 1; Lymphocytes % (manual) 5 (10.0-50.0); Metamyelocytes % 1; Monocytes % (manual) 6 (0-12); Platelet Estimate Adequate
[2023-11-30 07:52] LABS: Base Excess 0.4 mmol/L (-2.0-2.0)
[2023-11-30] MEDS: hydrALAZINE HCL 20 MG/ML VL IV PRN ×2 (09:24→17:58)
[2023-11-30] MEDS: CALCIUM ACETATE 667 MG CAP NG SCH (11:00)
[2023-11-30] MEDS: LEVOTHYROXINE SODIUM 100 MCG/5 ML INJ IV SCH (11:10)
[2023-11-30 12:43] LABS: Rapid Influenza A Negative (Negative); Rapid Influenza B Negative (Negative)
[2023-11-30 20:06] LABS: Vitamin B1, Whole Blood 89.5 nmol/L (66.5-200.0)
[2023-11-30] MEDS: TPN*HIGH CONC* PER PHARMACY IV NR (22:42)
[2023-12-01] VITALS (109 sets, daily range): BP systolic 89–187; BP diastolic 25–68; PULSE 80–112; RESP 13–26; TEMP 98.4–98.9; O2SAT 89–100
[2023-12-01 04:19] LABS: Eosinophils # (auto) 0.1 10 ^3/uL (0-0.8); Eosinophils % (auto) 0.5 % (0.0-7.0); Lymphocytes # (auto) 0.7 10 ^3/uL (0.4-5.4); Mean Corpuscular Hemoglobin 29.7 pg (28.0-32.0); Monocytes # (auto) 0.8 10 ^3/uL (0-1.3); Neutrophils # (auto) 12.3 10 ^3/uL (1.6-8.6); White Blood Cell 13.9 10^3/uL (4.4-10.8)
[2023-12-01 04:21] LABS: Basophils # (auto) 0 10 ^3/uL (0-0.2); Basophils % (auto) 0.3 % (0.0-2.0); Hematocrit 21.2 % (36.0-46.0); Lymphocytes % (auto) 4.8 % (10.0-50.0); Mean Corpuscular Hgb Conc. 32.5 g/dL (32.0-36.0); Mean Corpuscular Volume 91.6 fL (80.0-100.0); Monocytes % (auto) 5.6 % (0.0-12.0); Neutrophils % (auto) 88.8 % (37.0-80.0); Red Blood Cells 2.31 10^6/uL (4.0-5.20); Red Cell Distribution Width 14.7 % (11.8-14.3)
[2023-12-01 04:37] LABS: Alanine Aminotransferase 25 U/L (7-40); Alkaline Phosphatase 77 U/L (46-116); Anion Gap 13 (5-15); BUN/Creatinine Ratio 13.4 (10.0-20.0); Blood Urea Nitrogen 72 mg/dL (9-23); Calcium 8.2 mg/dL (8.7-10.4); Carbon Dioxide 23 mmol/L (20-30); Chloride 106 mmol/L (98-107); Glucose 203 mg/dL (74-106); Hemoglobin 6.9 g/dL (12.2-16.2); Potassium 3.7 mmol/L (3.5-5.1); Sodium 142 mmol/L (136-145)
[2023-12-01 04:38] LABS: Albumin 2.7 g/dL (3.2-4.8); Aspartate Aminotransferase 30 U/L (13-40); Bilirubin, Total 0.2 mg/dL (0.2-1.0); Phosphorus 5.2 mg/dL (2.4-5.1); Total Protein 5.5 g/dL (5.7-8.2)
[2023-12-01 06:37] LABS: Hemoglobin 7.7 g/dL (12.2-16.2); Mean Corpuscular Hemoglobin 29.2 pg (28.0-32.0); Mean Corpuscular Hgb Conc. 32.2 g/dL (32.0-36.0); Mean Corpuscular Volume 90.9 fL (80.0-100.0); Red Blood Cells 2.64 10^6/uL (4.0-5.20); Red Cell Distribution Width 14.7 % (11.8-14.3)
[2023-12-01 06:56] LABS: Basophils % (manual) 0 (0.0-2.0); Blast Cells 0; Myelocytes % 0; Promyelocytes % 0; Reactive Lymphocytes 0
[2023-12-01 08:03] LABS: Band Neutrophils % (manual) 4; Eosinophils % (manual) 2 (0-7); Lymphocytes % (manual) 8 (10.0-50.0); Metamyelocytes % 1; Monocytes % (manual) 6 (0-12)
[2023-12-01 08:04] LABS: Anisocytosis Slight; Platelet Estimate Adequate
[2023-12-01 08:38] LABS: Base Excess -1.1 mmol/L (-2.0-2.0)
[2023-12-01] MEDS: ALBUMIN 25% 100 ML IV ONE ×2 (13:01→16:41)
[2023-12-01] MEDS: TPN*HIGH CONC* PER PHARMACY IV NR (20:38)
[2023-12-01] MEDS: EPOETIN ALFA-EPBX 10,000 UNIT/1ML VIAL SC ONE (22:42)
[2023-12-02] VITALS (127 sets, daily range): BP systolic 53–196; BP diastolic 35–89; PULSE 80–100; RESP 11–28; TEMP 97.6–99.8; O2SAT 97–100
[2023-12-02 04:14] LABS: Mean Corpuscular Volume 90.6 fL (80.0-100.0); Red Blood Cells 2.19 10^6/uL (4.0-5.20); White Blood Cell 13.6 10^3/uL (4.4-10.8)
[2023-12-02 04:17] LABS: Hematocrit 19.8 % (36.0-46.0); Mean Corpuscular Hemoglobin 28.9 pg (28.0-32.0); Red Cell Distribution Width 14.4 % (11.8-14.3)
[2023-12-02 04:31] LABS: Alanine Aminotransferase 19 U/L (7-40); Albumin 3.2 g/dL (3.2-4.8); Alkaline Phosphatase 67 U/L (46-116); Anion Gap 11 (5-15); Aspartate Aminotransferase 25 U/L (13-40); BUN/Creatinine Ratio 14.5 (10.0-20.0); Calcium 8.7 mg/dL (8.5-10.1); Carbon Dioxide 25 mmol/L (20-30); Chloride 107 mmol/L (98-107); Glucose 163 mg/dL (74-106); Hemoglobin 6.3 g/dL (12.2-16.2); Potassium 3.7 mmol/L (3.5-5.1); Sodium 143 mmol/L (136-145); Triglycerides 43 mg/dL (< 150)
[2023-12-02 04:32] LABS: Bilirubin, Total 0.2 mg/dL (0.2-1.0); Phosphorus 3.4 mg/dL (2.4-5.1)
[2023-12-02 04:33] LABS: Basophils % (manual) 0 (0.0-2.0); Blast Cells 0; Blood Urea Nitrogen 61 mg/dL (9-23); Eosinophils % (manual) 0 (0-7); Metamyelocytes % 0; Myelocytes % 0; Promyelocytes % 0; Reactive Lymphocytes 0
[2023-12-02 04:40] LABS: Magnesium 1.8 mg/dL (1.6-2.6)
[2023-12-02 08:03] LABS: Band Neutrophils % (manual) 2; Lymphocytes % (manual) 6 (10.0-50.0); Monocytes % (manual) 6 (0-12)
[2023-12-02 08:04] LABS: Platelet Estimate Adequate; RBC Morphology Normal
[2023-12-02] MEDS: diphenhdrAMINE HCL 50 MG/1 ML VL ONE (09:28)
[2023-12-02] MEDS: ACETAMINOPHEN 650 mg PER 20.3 mL UD ONE (09:29)
[2023-12-02] MEDS: hydrALAZINE HCL 20 MG/ML VL ONE (09:29)
[2023-12-02] MEDS: ACETAMINOPHEN 650 mg PER 20.3 mL UD PO ONE (09:48)
[2023-12-02] MEDS: diphenhdrAMINE HCL 50 MG/1 ML VL IV ONE (09:48)
[2023-12-02] MEDS: CATHFLO ACTIVASE (ALTEPLASE) 2 MG VIAL IV ONE (10:07)
[2023-12-02] MEDS: SODIUM CHL 0.9% 1000 ML BAG XX ONE (10:35)
[2023-12-02] MEDS: FUROSEMIDE 40 MG/4 ML VIAL IV ONE (13:09)
[2023-12-02 19:03] LABS: INR 1.15 (0.9-1.15)
[2023-12-02] MEDS: TPN*HIGH CONC* PER PHARMACY IV NR (20:31)
[2023-12-03] VITALS (87 sets, daily range): BP systolic 112–192; BP diastolic 42–73; PULSE 81–107; RESP 14–31; TEMP 98.4–99.8; O2SAT 94–100
[2023-12-03 03:50] LABS: Basophils # (auto) 0 10 ^3/uL (0-0.2); Basophils % (auto) 0.3 % (0.0-2.0); Eosinophils # (auto) 0.1 10 ^3/uL (0-0.8); Eosinophils % (auto) 0.6 % (0.0-7.0); Hematocrit 27.5 % (36.0-46.0); Hemoglobin 9.1 g/dL (12.2-16.2); Lymphocytes # (auto) 0.8 10 ^3/uL (0.4-5.4); Lymphocytes % (auto) 6.5 % (10.0-50.0); Mean Corpuscular Hemoglobin 29.1 pg (28.0-32.0); Mean Corpuscular Hgb Conc. 33.1 g/dL (32.0-36.0); Mean Corpuscular Volume 87.8 fL (80.0-100.0); Monocytes # (auto) 0.6 10 ^3/uL (0-1.3); Monocytes % (auto) 5.5 % (0.0-12.0); Neutrophils # (auto) 10.3 10 ^3/uL (1.6-8.6); Neutrophils % (auto) 87.1 % (37.0-80.0); Red Blood Cells 3.14 10^6/uL (4.0-5.20); Red Cell Distribution Width 16.2 % (11.8-14.3); White Blood Cell 11.8 10^3/uL (4.4-10.8)
[2023-12-03 04:15] LABS: Alanine Aminotransferase 19 U/L (7-40); Alkaline Phosphatase 64 U/L (46-116); Anion Gap 10 (5-15); Aspartate Aminotransferase 18 U/L (13-40); BUN/Creatinine Ratio 16.7 (10.0-20.0); Bilirubin, Total 0.3 mg/dL (0.2-1.0); Blood Urea Nitrogen 70 mg/dL (9-23); Calcium 8.2 mg/dL (8.7-10.4); Carbon Dioxide 24 mmol/L (20-30); Chloride 108 mmol/L (98-107); Glucose 215 mg/dL (74-106); Magnesium 1.7 mg/dL (1.6-2.6); Phosphorus 3.7 mg/dL (2.4-5.1); Potassium 3.7 mmol/L (3.5-5.1); Sodium 142 mmol/L (136-145); Total Protein 5.7 g/dL (5.7-8.2)
[2023-12-03] MEDS: SODIUM CHL 0.9% 1000 ML BAG XX ONE (07:00)
[2023-12-03 08:01] LABS: Base Excess 0.4 mmol/L (-2.0-2.0)
[2023-12-03] MEDS ORDERED: HEPARIN SODIUM (PORCINE) 5000 UNITS/ML 1ML VIAL SC SCH (10:00)
[2023-12-03] MEDS ORDERED: ENOXAPARIN SOD 30 MG/0.3 ML SYRINGE SC SCH (10:00)
[2023-12-03] MEDS: FUROSEMIDE 40 MG/4 ML VIAL IV ONE ×2 (11:11→13:30)
[2023-12-03] MEDS: HEPARIN SODIUM (PORCINE) 5000 UNITS/ML 1ML VIAL SC SCH (11:27)
[2023-12-03] MEDS: IPRATROPIUM BROM 0.5 MG/2.5ML INH SOL NEB ONE (12:59)
[2023-12-03] MEDS: EPINEPHrine HCL 0.5 ML NEB NEB ONE (12:59)
[2023-12-03] MEDS: ALBUTEROL SULF 2.5 MG/0.5ML(0.5%) NEB SOLN NEB ONE (12:59)
[2023-12-03] MEDS: methylPREDNISolone SOD SUCC 40 MG/ML VL IV ONE (13:00)
[2023-12-03] MEDS: methylPREDNISolone SOD SUCC 40 MG/ML VL ONE (13:00)
[2023-12-03] MEDS: EPINEPHrine HCL 0.5 ML NEB ONE ×2 (13:11→13:12)
[2023-12-03] MEDS: IPRATROPIUM BROM 0.5 MG/2.5ML INH SOL ONE (13:12)
[2023-12-03] MEDS: ALBUTEROL SULF 2.5 MG/0.5ML(0.5%) NEB SOLN ONE (13:12)
[2023-12-03] MEDS: LIDOCAINE 1% (LOCAL ANESTH.) PF 5ml SDV ID ONE (15:30)
[2023-12-03 17:14] LABS: Chloride 106 mmol/L (98-107); Sodium 142 mmol/L (136-145)
[2023-12-03 17:15] LABS: Anion Gap 10 (5-15); Calcium 8.6 mg/dL (8.5-10.1); Carbon Dioxide 26 mmol/L (20-30)
[2023-12-03 17:20] LABS: Blood Urea Nitrogen 79 mg/dL (9-23); Glucose 279 mg/dL (74-106)
[2023-12-03] MEDS: FUROSEMIDE 40 MG/4 ML VIAL IV SCH (17:28)
[2023-12-03] MEDS ORDERED: FUROSEMIDE 40 MG/4 ML VIAL IV SCH (18:00)
[2023-12-03] MEDS: EPOETIN ALFA-EPBX 10,000 UNIT/1ML VIAL SC ONE (21:03)
[2023-12-03] MEDS: SODIUM CHLOR 0.9% PF (SALINE LOCK) 10ML VIAL/SYR IV SCH (21:37)
[2023-12-03] MEDS: TPN*HIGH CONC* PER PHARMACY IV NR (21:43)
[2023-12-04] VITALS (64 sets, daily range): BP systolic 120–175; BP diastolic 41–68; PULSE 80–105; RESP 10–32; TEMP 98.1–98.9; O2SAT 93–100
[2023-12-04 04:06] LABS: Basophils # (auto) 0 10 ^3/uL (0-0.2); Basophils % (auto) 0.2 % (0.0-2.0); Carbon Dioxide 26 mmol/L (20-30); Chloride 107 mmol/L (98-107); Eosinophils # (auto) 0 10 ^3/uL (0-0.8); Eosinophils % (auto) 0.1 % (0.0-7.0); Hemoglobin 10.2 g/dL (12.2-16.2); Lymphocytes # (auto) 0.7 10 ^3/uL (0.4-5.4); Mean Corpuscular Hemoglobin 28.3 pg (28.0-32.0); Mean Corpuscular Hgb Conc. 31.8 g/dL (32.0-36.0); Monocytes # (auto) 0.7 10 ^3/uL (0-1.3); Neutrophils % (auto) 89.7 % (37.0-80.0); Potassium 3.9 mmol/L (3.5-5.1); Red Cell Distribution Width 16.7 % (11.8-14.3); White Blood Cell 14.5 10^3/uL (4.4-10.8)
[2023-12-04 04:07] LABS: Anion Gap 10 (5-15); Sodium 143 mmol/L (136-145)
[2023-12-04 04:08] LABS: Calcium 8.6 mg/dL (8.7-10.4)
[2023-12-04 04:12] LABS: Glucose 243 mg/dL (74-106)
[2023-12-04 04:13] LABS: BUN/Creatinine Ratio 19.6 (10.0-20.0); Magnesium 1.7 mg/dL (1.6-2.6)
[2023-12-04 04:15] LABS: Phosphorus 3.6 mg/dL (2.4-5.1)
[2023-12-04 04:19] LABS: Blood Urea Nitrogen 80 mg/dL (9-23)
[2023-12-04] MEDS: CATHFLO ACTIVASE (ALTEPLASE) 2 MG VIAL IV ONE (06:45)
[2023-12-04] MEDS: TPN*HIGH CONC* PER PHARMACY IV NR (20:38)
[2023-12-04] MEDS: HEPARIN SODIUM (PORCINE) 5000 UNITS/ML 1ML VIAL SC SCH (21:47)
[2023-12-05] VITALS (41 sets, daily range): BP systolic 100–162; BP diastolic 29–80; PULSE 81–97; RESP 11–22; TEMP 97.7–99; O2SAT 93–100
[2023-12-05 03:48] LABS: Basophils # (auto) 0.1 10 ^3/uL (0-0.2); Basophils % (auto) 0.8 % (0.0-2.0); Eosinophils # (auto) 0.1 10 ^3/uL (0-0.8); Hematocrit 31.2 % (36.0-46.0); Hemoglobin 10.2 g/dL (12.2-16.2); Lymphocytes # (auto) 0.9 10 ^3/uL (0.4-5.4); Lymphocytes % (auto) 7.9 % (10.0-50.0); Mean Corpuscular Hemoglobin 29.4 pg (28.0-32.0); Mean Corpuscular Hgb Conc. 32.9 g/dL (32.0-36.0); Mean Corpuscular Volume 89.4 fL (80.0-100.0); Monocytes # (auto) 0.8 10 ^3/uL (0-1.3); Monocytes % (auto) 6.6 % (0.0-12.0); Neutrophils % (auto) 83.7 % (37.0-80.0); Red Blood Cells 3.49 10^6/uL (4.0-5.20); White Blood Cell 11.9 10^3/uL (4.4-10.8)
[2023-12-05 03:59] LABS: Alanine Aminotransferase 16 U/L (7-40); Albumin 3.2 g/dL (3.2-4.8); Alkaline Phosphatase 69 U/L (46-116); Anion Gap 9 (5-15); Aspartate Aminotransferase 16 U/L (13-40); BUN/Creatinine Ratio 21.6 (10.0-20.0); Blood Urea Nitrogen 76 mg/dL (9-23); Calcium 8.5 mg/dL (8.7-10.4); Carbon Dioxide 28 mmol/L (20-30); Chloride 109 mmol/L (98-107); Glucose 221 mg/dL (74-106); Magnesium 1.7 mg/dL (1.6-2.6); Potassium 3.8 mmol/L (3.5-5.1); Sodium 146 mmol/L (136-145)
[2023-12-05 04:00] LABS: Bilirubin, Total 0.2 mg/dL (0.2-1.0); Phosphorus 4.1 mg/dL (2.4-5.1); Total Protein 6.2 g/dL (5.7-8.2)
[2023-12-05] MEDS: MAGNESIUM SULFATE 1GM/100ML 100 ML IV ONE (10:36)
[2023-12-05] MEDS: POTASSIUM CHL 20MEQ/100ML 100 ML IV ONE (11:55)
[2023-12-05] MEDS: TPN*HIGH CONC* PER PHARMACY IV NR (20:06)
[2023-12-06] VITALS (38 sets, daily range): BP systolic 123–169; BP diastolic 34–73; PULSE 75–112; RESP 7–24; TEMP 97.1–98.6; O2SAT 90–98
[2023-12-06 06:13] LABS: Basophils # (auto) 0.1 10 ^3/uL (0-0.2); Basophils % (auto) 0.5 % (0.0-2.0); Eosinophils # (auto) 0.1 10 ^3/uL (0-0.8); Eosinophils % (auto) 1.3 % (0.0-7.0); Hematocrit 32.6 % (36.0-46.0); Hemoglobin 10.7 g/dL (12.2-16.2); Lymphocytes # (auto) 1.1 10 ^3/uL (0.4-5.4); Lymphocytes % (auto) 10.3 % (10.0-50.0); Mean Corpuscular Hgb Conc. 32.8 g/dL (32.0-36.0); Mean Corpuscular Volume 88.6 fL (80.0-100.0); Monocytes # (auto) 0.8 10 ^3/uL (0-1.3); Monocytes % (auto) 7.8 % (0.0-12.0); Neutrophils # (auto) 8.6 10 ^3/uL (1.6-8.6); Neutrophils % (auto) 80.1 % (37.0-80.0); Nucleated Red Blood Cells % 0.1 %; Red Blood Cells 3.68 10^6/uL (4.0-5.20); White Blood Cell 10.8 10^3/uL (4.4-10.8)
[2023-12-06 06:21] LABS: Potassium 3.9 mmol/L (3.5-5.1)
[2023-12-06 06:22] LABS: Calcium 9.1 mg/dL (8.7-10.4)
[2023-12-06 06:27] LABS: BUN/Creatinine Ratio 31.1 (10.0-20.0)
[2023-12-06 06:28] LABS: Albumin 3.5 g/dL (3.2-4.8)
[2023-12-06] MEDS: SOD CHL 0.45% 1,000 ML IV SCH (08:42)
[2023-12-06] MEDS: FUROSEMIDE 40 MG/4 ML VIAL IV SCH (08:47)
[2023-12-06] MEDS: INSULIN LANTUS (GLARGINE) 1 /0.01ml (100units/ml) SC ONE (13:13)
[2023-12-06] MEDS: TPN*HIGH CONC* PER PHARMACY IV NR (20:43)
[2023-12-06] MEDS: INSULIN LANTUS (GLARGINE) 1 /0.01ml (100units/ml) SC SCH (21:21)
[2023-12-07] VITALS (31 sets, daily range): BP systolic 129–176; BP diastolic 39–66; PULSE 79–91; RESP 10–21; TEMP 97.8–98.4; O2SAT 6–97
[2023-12-07 07:28] LABS: Alanine Aminotransferase 16 U/L (7-40); Alkaline Phosphatase 72 U/L (46-116); Calcium 8.9 mg/dL (8.7-10.4); Carbon Dioxide 30 mmol/L (20-30); Chloride 112 mmol/L (98-107); Glucose 243 mg/dL (74-106); Magnesium 2.3 mg/dL (1.6-2.6); Potassium 3.6 mmol/L (3.5-5.1)
[2023-12-07 07:29] LABS: Albumin 3.4 g/dL (3.2-4.8); Anion Gap 8 (5-15); Aspartate Aminotransferase 18 U/L (13-40); BUN/Creatinine Ratio 32.5 (10.0-20.0); Bilirubin, Total 0.3 mg/dL (0.2-1.0); Phosphorus 3.4 mg/dL (2.4-5.1); Sodium 150 mmol/L (136-145); Total Protein 6.8 g/dL (5.7-8.2)
[2023-12-07 07:39] LABS: Blood Urea Nitrogen 80 mg/dL (9-23)
[2023-12-07] MEDS: D5W 5% 1,000 ML IV SCH (12:59)
[2023-12-07] MEDS: FOLIC ACID 1 MG in D5W 5% 50 ML INJ SCH (14:34)
[2023-12-07] MEDS: POTASSIUM CHL 20MEQ/100ML 100 ML IV ONE (14:51)
[2023-12-07] MEDS: TPN*HIGH CONC* PER PHARMACY IV NR (20:20)
[2023-12-07] MEDS: INSULIN LANTUS (GLARGINE) 1 /0.01ml (100units/ml) SC SCH (21:47)
[2023-12-08] VITALS (23 sets, daily range): BP systolic 110–147; BP diastolic 42–56; PULSE 75–90; RESP 11–16; TEMP 97.7–98; O2SAT 92–98
[2023-12-08 05:19] LABS: Potassium 3.8 mmol/L (3.5-5.1)
[2023-12-08 05:26] LABS: Magnesium 1.9 mg/dL (1.6-2.6)
[2023-12-08 05:27] LABS: Albumin 3.3 g/dL (3.2-4.8); Phosphorus 3.9 mg/dL (2.4-5.1)
[2023-12-08 06:13] LABS: Calcium 8.8 mg/dL (8.5-10.1)
[2023-12-08] MEDS: TPN*HIGH CONC* PER PHARMACY IV NR (19:39)
[2023-12-09] VITALS (16 sets, daily range): BP systolic 115–137; BP diastolic 48–64; PULSE 78–111; RESP 12–18; TEMP 98–98.4; O2SAT 92–99
[2023-12-09 05:21] LABS: Alanine Aminotransferase 18 U/L (7-40); Albumin 3.4 g/dL (3.2-4.8); Alkaline Phosphatase 70 U/L (46-116); Anion Gap 7 (5-15); Aspartate Aminotransferase 29 U/L (13-40); Bilirubin, Total 0.4 mg/dL (0.2-1.0); Carbon Dioxide 31 mmol/L (20-30); Chloride 110 mmol/L (98-107); Glucose 222 mg/dL (74-106); Phosphorus 3.5 mg/dL (2.4-5.1); Potassium 3.9 mmol/L (3.5-5.1); Sodium 148 mmol/L (136-145); Total Protein 6.9 g/dL (5.7-8.2); Triglycerides 99 mg/dL (< 150)
[2023-12-09 05:33] LABS: Blood Urea Nitrogen 88 mg/dL (9-23)
[2023-12-09 06:20] LABS: Magnesium 2.1 mg/dL (1.6-2.6)
[2023-12-09] MEDS: TPN*HIGH CONC* PER PHARMACY IV NR (21:04)
[2023-12-10 06:05] LABS: Albumin 3.3 g/dL (3.2-4.8); Alkaline Phosphatase 67 U/L (46-116); Anion Gap 7 (5-15); Aspartate Aminotransferase 31 U/L (13-40); BUN/Creatinine Ratio 36.5 (10.0-20.0); Calcium 9.3 mg/dL (8.7-10.4); Carbon Dioxide 29 mmol/L (20-30); Chloride 109 mmol/L (98-107); Glucose 224 mg/dL (74-106); Magnesium 2.1 mg/dL (1.6-2.6); Potassium 3.7 mmol/L (3.5-5.1); Sodium 145 mmol/L (136-145)
[2023-12-10 06:06] LABS: Bilirubin, Total 0.4 mg/dL (0.2-1.0); Phosphorus 3.4 mg/dL (2.4-5.1); Total Protein 6.8 g/dL (5.7-8.2)
[2023-12-10 06:13] LABS: Blood Urea Nitrogen 88 mg/dL (9-23)
[2023-12-10 07:17] LABS: Alanine Aminotransferase 21 U/L (7-40)
[2023-12-10 08:00] VITALS: PULSE 76
[2023-12-10 09:00] VITALS: BP 117/59; PULSE 81; RESP 20; TEMP 98.2; O2SAT 97
[2023-12-10 12:54] VITALS: BP 108/52; PULSE 83; RESP 18; TEMP 98; O2SAT 90
[2023-12-10 17:00] VITALS: BP 115/53; PULSE 80; RESP 16; TEMP 97.6; O2SAT 90
[2023-12-10 20:00] VITALS: PULSE 83
[2023-12-10] MEDS: TPN*HIGH CONC* PER PHARMACY IV NR (20:41)
[2023-12-10 22:00] VITALS: BP 117/53; PULSE 84; RESP 18; TEMP 98; O2SAT 100
[2023-12-11] VITALS (7 sets, daily range): BP systolic 91–134; BP diastolic 50–62; PULSE 69–88; RESP 18–20; TEMP 97.5–98.6; O2SAT 93–100
[2023-12-11 06:26] LABS: Alanine Aminotransferase 21 U/L (7-40); Albumin 3.5 g/dL (3.2-4.8); Alkaline Phosphatase 73 U/L (46-116); Anion Gap 7 (5-15); Aspartate Aminotransferase 27 U/L (13-40); BUN/Creatinine Ratio 37.2 (10.0-20.0); Calcium 9.2 mg/dL (8.7-10.4); Carbon Dioxide 27 mmol/L (20-30); Chloride 108 mmol/L (98-107); Glucose 175 mg/dL (74-106); Magnesium 2.2 mg/dL (1.6-2.6); Potassium 3.8 mmol/L (3.5-5.1); Sodium 142 mmol/L (136-145)
[2023-12-11 06:27] LABS: Bilirubin, Total 0.4 mg/dL (0.2-1.0); Phosphorus 4.1 mg/dL (2.4-5.1); Total Protein 7.2 g/dL (5.7-8.2)
[2023-12-11 06:34] LABS: Blood Urea Nitrogen 84 mg/dL (9-23)
[2023-12-11] MEDS: TPN*HIGH CONC* PER PHARMACY IV NR (21:17)
[2023-12-12] VITALS (7 sets, daily range): BP systolic 93–119; BP diastolic 40–63; PULSE 71–91; RESP 16–19; TEMP 98.1–99.7; O2SAT 92–97
[2023-12-12 06:34] LABS: Alanine Aminotransferase 19 U/L (7-40); Albumin 3.3 g/dL (3.2-4.8); Alkaline Phosphatase 70 U/L (46-116); Anion Gap 6 (5-15); Aspartate Aminotransferase 24 U/L (13-40); BUN/Creatinine Ratio 40.7 (10.0-20.0); Bilirubin, Total 0.4 mg/dL (0.2-1.0); Calcium 9.1 mg/dL (8.7-10.4); Carbon Dioxide 27 mmol/L (20-30); Chloride 108 mmol/L (98-107); Glucose 185 mg/dL (74-106); Magnesium 2.1 mg/dL (1.6-2.6); Phosphorus 4.2 mg/dL (2.4-5.1); Potassium 4.2 mmol/L (3.5-5.1); Sodium 141 mmol/L (136-145); Total Protein 6.8 g/dL (5.7-8.2)
[2023-12-12 06:44] LABS: Blood Urea Nitrogen 88 mg/dL (9-23)
[2023-12-12] MEDS: TPN*HIGH CONC* PER PHARMACY IV NR (20:00)
[2023-12-13] VITALS (9 sets, daily range): BP systolic 96–107; BP diastolic 34–67; PULSE 79–103; RESP 16–34; TEMP 98.4–99.1; O2SAT 96–99
[2023-12-13 06:17] LABS: Alanine Aminotransferase 23 U/L (7-40); Albumin 3.3 g/dL (3.2-4.8); Alkaline Phosphatase 75 U/L (46-116); Anion Gap 7 (5-15); Aspartate Aminotransferase 28 U/L (13-40); Calcium 9.1 mg/dL (8.7-10.4); Carbon Dioxide 27 mmol/L (20-30); Chloride 106 mmol/L (98-107); Glucose 193 mg/dL (74-106); Magnesium 2.2 mg/dL (1.6-2.6); Sodium 140 mmol/L (136-145)
[2023-12-13 06:18] LABS: Bilirubin, Total 0.4 mg/dL (0.2-1.0); Phosphorus 3.8 mg/dL (2.4-5.1); Total Protein 6.9 g/dL (5.7-8.2)
[2023-12-13 06:39] LABS: Blood Urea Nitrogen 81 mg/dL (9-23)
[2023-12-13] MEDS: FUROSEMIDE 40 MG/4 ML VIAL IV ONE (11:30)
[2023-12-13] MEDS: TPN*HIGH CONC* PER PHARMACY IV NR (20:52)
[2023-12-14] VITALS (7 sets, daily range): BP systolic 103–119; BP diastolic 31–61; PULSE 77–92; RESP 16–18; TEMP 98.1–99.8; O2SAT 92–99
[2023-12-14 07:02] LABS: Alanine Aminotransferase 30 U/L (7-40); Albumin 3.4 g/dL (3.2-4.8); Alkaline Phosphatase 80 U/L (46-116); Anion Gap 7 (5-15); Aspartate Aminotransferase 37 U/L (13-40); BUN/Creatinine Ratio 47.1 (10.0-20.0); Bilirubin, Total 0.4 mg/dL (0.2-1.0); Calcium 9.1 mg/dL (8.7-10.4); Carbon Dioxide 27 mmol/L (20-30); Chloride 104 mmol/L (98-107); Glucose 186 mg/dL (74-106); Potassium 4.4 mmol/L (3.5-5.1); Sodium 138 mmol/L (136-145)
[2023-12-14 07:03] LABS: Total Protein 7.2 g/dL (5.7-8.2)
[2023-12-14 07:22] LABS: Blood Urea Nitrogen 80 mg/dL (9-23)
[2023-12-14 07:36] LABS: Triglycerides 119 mg/dL (< 150)
[2023-12-14] MEDS ORDERED: FUROSEMIDE 40 MG/4 ML VIAL IV SCH (10:00)
[2023-12-14] MEDS: TPN*HIGH CONC* PER PHARMACY IV NR (20:00)
[2023-12-15 04:52] VITALS: BP 111/47; PULSE 89; RESP 17; TEMP 98.5; O2SAT 98
[2023-12-15 07:14] LABS: Potassium 4.5 mmol/L (3.5-5.1)
[2023-12-15 07:16] LABS: Calcium 8.8 mg/dL (8.7-10.4)
[2023-12-15 07:21] LABS: Albumin 3.5 g/dL (3.2-4.8); BUN/Creatinine Ratio 42.9 (10.0-20.0); Magnesium 2.2 mg/dL (1.6-2.6)
[2023-12-15 07:23] LABS: Phosphorus 4.4 mg/dL (2.4-5.1)
[2023-12-15 08:00] VITALS: PULSE 87; RESP 16
[2023-12-15 10:56] VITALS: BP 114/49; PULSE 86; RESP 20; TEMP 98.1; O2SAT 95
[2023-12-15 13:10] VITALS: BP 120/54; PULSE 88; RESP 20; TEMP 98.9; O2SAT 95
[2023-12-15 19:30] VITALS: PULSE 81; PULSE 82; RESP 17; O2SAT 97
[2023-12-15] MEDS: TPN*HIGH CONC* PER PHARMACY IV NR (20:22)
[2023-12-15 22:00] VITALS: BP 120/50; PULSE 80; RESP 20; TEMP 98.7; O2SAT 96
[2023-12-16] VITALS (7 sets, daily range): BP systolic 94–117; BP diastolic 44–58; PULSE 68–102; RESP 17–22; TEMP 98.2–98.8; O2SAT 91–97
[2023-12-16 06:57] LABS: Basophils # (auto) 0 10 ^3/uL (0-0.2); Basophils % (auto) 0.4 % (0.0-2.0); Eosinophils # (auto) 0.1 10 ^3/uL (0-0.8); Eosinophils % (auto) 1.3 % (0.0-7.0); Hematocrit 30.7 % (36.0-46.0); Hemoglobin 10.1 g/dL (12.2-16.2); Lymphocytes # (auto) 1.4 10 ^3/uL (0.4-5.4); Lymphocytes % (auto) 19.7 % (10.0-50.0); Mean Corpuscular Hemoglobin 29.6 pg (28.0-32.0); Mean Corpuscular Hgb Conc. 32.9 g/dL (32.0-36.0); Mean Corpuscular Volume 90.1 fL (80.0-100.0); Monocytes # (auto) 0.9 10 ^3/uL (0-1.3); Monocytes % (auto) 12.8 % (0.0-12.0); Neutrophils # (auto) 4.6 10 ^3/uL (1.6-8.6); Neutrophils % (auto) 65.8 % (37.0-80.0); Nucleated Red Blood Cells % 0.1 %; Red Cell Distribution Width 16.4 % (11.8-14.3); White Blood Cell 6.9 10^3/uL (4.4-10.8)
[2023-12-16 07:03] LABS: Chloride 105 mmol/L (98-107); Potassium 4.2 mmol/L (3.5-5.1); Sodium 140 mmol/L (136-145)
[2023-12-16 07:04] LABS: Anion Gap 8 (5-15); Calcium 9.7 mg/dL (8.7-10.4); Carbon Dioxide 27 mmol/L (20-30)
[2023-12-16 07:09] LABS: BUN/Creatinine Ratio 41.1 (10.0-20.0); Blood Urea Nitrogen 69 mg/dL (9-23); Glucose 150 mg/dL (74-106)
[2023-12-16 07:10] LABS: Magnesium 2.3 mg/dL (1.6-2.6)
[2023-12-16] MEDS: TPN*HIGH CONC* PER PHARMACY IV NR (20:09)
[2023-12-17] VITALS (7 sets, daily range): BP systolic 98–111; BP diastolic 44–52; PULSE 89–94; RESP 14–18; TEMP 79.6–98.6; O2SAT 94–97
[2023-12-17 06:02] LABS: Basophils # (auto) 0 10 ^3/uL (0-0.2); Basophils % (auto) 0.4 % (0.0-2.0); Eosinophils # (auto) 0.1 10 ^3/uL (0-0.8); Eosinophils % (auto) 1.2 % (0.0-7.0); Hematocrit 31.3 % (36.0-46.0); Hemoglobin 10.1 g/dL (12.2-16.2); Lymphocytes # (auto) 1.4 10 ^3/uL (0.4-5.4); Lymphocytes % (auto) 17.5 % (10.0-50.0); Mean Corpuscular Hemoglobin 29.4 pg (28.0-32.0); Mean Corpuscular Hgb Conc. 32.3 g/dL (32.0-36.0); Mean Corpuscular Volume 91.1 fL (80.0-100.0); Monocytes # (auto) 0.9 10 ^3/uL (0-1.3); Monocytes % (auto) 10.9 % (0.0-12.0); Neutrophils # (auto) 5.5 10 ^3/uL (1.6-8.6); Nucleated Red Blood Cells % 0.1 %; Red Blood Cells 3.43 10^6/uL (4.0-5.20); Red Cell Distribution Width 16.6 % (11.8-14.3); White Blood Cell 7.8 10^3/uL (4.4-10.8)
[2023-12-17 06:19] LABS: Alanine Aminotransferase 70 U/L (7-40); Albumin 3.6 g/dL (3.2-4.8); Alkaline Phosphatase 125 U/L (46-116); Anion Gap 9 (5-15); Aspartate Aminotransferase 82 U/L (13-40); BUN/Creatinine Ratio 42.3 (10.0-20.0); Blood Urea Nitrogen 77 mg/dL (9-23); Calcium 9.6 mg/dL (8.7-10.4); Carbon Dioxide 26 mmol/L (20-30); Chloride 106 mmol/L (98-107); Glucose 164 mg/dL (74-106); Magnesium 2.4 mg/dL (1.6-2.6); Potassium 4.3 mmol/L (3.5-5.1); Sodium 141 mmol/L (136-145)
[2023-12-17 06:20] LABS: Bilirubin, Total 0.4 mg/dL (0.2-1.0); Phosphorus 3.9 mg/dL (2.4-5.1); Total Protein 7.7 g/dL (5.7-8.2)
[2023-12-17] MEDS: TPN*HIGH CONC* PER PHARMACY IV NR (19:47)
[2023-12-17] MEDS ORDERED: LORazepam 2MG/ML-1ML VIAL IV PRN (23:45)
[2023-12-18 05:00] VITALS: BP 114/49; PULSE 86; RESP 18; TEMP 97.3; O2SAT 94
[2023-12-18 07:17] LABS: Alanine Aminotransferase 74 U/L (7-40); Albumin 3.4 g/dL (3.2-4.8); Alkaline Phosphatase 130 U/L (46-116); Anion Gap 10 (5-15); Aspartate Aminotransferase 78 U/L (13-40); BUN/Creatinine Ratio 47.4 (10.0-20.0); Bilirubin, Total 0.5 mg/dL (0.2-1.0); Calcium 9.4 mg/dL (8.7-10.4); Carbon Dioxide 25 mmol/L (20-30); Chloride 105 mmol/L (98-107); Glucose 157 mg/dL (74-106); Magnesium 2.4 mg/dL (1.6-2.6); Phosphorus 4.2 mg/dL (2.4-5.1); Sodium 140 mmol/L (136-145); Total Protein 7.3 g/dL (5.7-8.2)
[2023-12-18 07:31] LABS: Blood Urea Nitrogen 82 mg/dL (9-23)
[2023-12-18 08:00] VITALS: PULSE 84; PULSE 86; RESP 16; O2SAT 98
[2023-12-18 09:00] VITALS: BP 111/53; PULSE 86; RESP 16; TEMP 97.4; O2SAT 98
[2023-12-18] MEDS: LORazepam 2MG/ML-1ML VIAL IV PRN (09:59)
[2023-12-18 13:00] VITALS: BP 101/44; PULSE 97; RESP 18; TEMP 98.4; O2SAT 92
[2023-12-18 17:00] VITALS: BP 103/41; PULSE 91; RESP 18; TEMP 98.3; O2SAT 99
[2023-12-18] MEDS: TPN*HIGH CONC* PER PHARMACY IV NR (19:22)
[2023-12-18 20:00] VITALS: PULSE 90; PULSE 95; RESP 20; O2SAT 92
[2023-12-19] VITALS (7 sets, daily range): BP systolic 94–146; BP diastolic 50–123; PULSE 67–96; RESP 16–18; TEMP 97.7–98.7; O2SAT 92–97
[2023-12-19 06:27] LABS: Alanine Aminotransferase 74 U/L (7-40); Albumin 3.7 g/dL (3.2-4.8); Alkaline Phosphatase 137 U/L (46-116); Anion Gap 12 (5-15); Aspartate Aminotransferase 72 U/L (13-40); BUN/Creatinine Ratio 51.3 (10.0-20.0); Calcium 9.7 mg/dL (8.7-10.4); Carbon Dioxide 25 mmol/L (20-30); Chloride 106 mmol/L (98-107); Glucose 116 mg/dL (74-106); Magnesium 2.4 mg/dL (1.6-2.6); Potassium 3.9 mmol/L (3.5-5.1); Sodium 143 mmol/L (136-145)
[2023-12-19 06:28] LABS: Bilirubin, Total 0.6 mg/dL (0.2-1.0); Phosphorus 4.4 mg/dL (2.4-5.1); Total Protein 7.7 g/dL (5.7-8.2)
[2023-12-19 06:30] LABS: Blood Urea Nitrogen 82 mg/dL (9-23)
[2023-12-19] MEDS ORDERED: TPN*HIGH CONC* PER PHARMACY IV NR (20:00)
[2023-12-20 01:00] VITALS: BP 117/53; PULSE 98; RESP 16; TEMP 98.5; O2SAT 95
[2023-12-20 05:00] VITALS: BP 116/57; PULSE 94; RESP 16; TEMP 97.8; O2SAT 94
[2023-12-20 08:00] VITALS: PULSE 86; RESP 16; O2SAT 96
[2023-12-20 09:00] VITALS: BP 133/60; PULSE 85; RESP 16; TEMP 97.6; O2SAT 95
[2023-12-20 11:56] VITALS: BP 109/56; PULSE 85; RESP 18; TEMP 36.4; O2SAT 96
== END 2023-12-20 12:36 | disposition hospice, home (50) | DRG 853 ==
LOC: EDBD 19:49 → ER 19:49 → TELE 11-19 04:14 → ER 11-19 04:14 → ICU WEST 11-23 14:41 → DOU IN ICU 12-05 05:30 → TELE-CENTR 12-09 14:55
PROVIDERS: ADMIT Internal Medicine Geriatric Medicine; ATTEND Internal Medicine Geriatric Medicine
PROC: 5A1955Z Respiratory Ventilation, Greater than 96 Consecutive Hours (ICD-10-PCS; 2023-11-22)
PROC: 0BH17EZ Insertion of Endotracheal Airway into Trachea, Via Natural or Artificial Opening (ICD-10-PCS; 2023-11-22)
PROC: 02HV33Z Insertion of Infusion Device into Superior Vena Cava, Percutaneous Approach (ICD-10-PCS; 2023-11-22)
PROC: B548ZZA Ultrasonography of Superior Vena Cava, Guidance (ICD-10-PCS; 2023-11-22)
PROC: 0DTG0ZZ Resection of Left Large Intestine, Open Approach (ICD-10-PCS; 2023-11-23)
PROC: 0D1L0Z4 Bypass Transverse Colon to Cutaneous, Open Approach (ICD-10-PCS; 2023-11-23)
PROC: 0DSN0ZZ Reposition Sigmoid Colon, Open Approach (ICD-10-PCS; principal; 2023-11-23 12:08)
PROC: 5A1D70Z Performance of Urinary Filtration, Intermittent, Less than 6 Hours Per Day (ICD-10-PCS; 2023-11-25)
PROC: 02HV33Z Insertion of Infusion Device into Superior Vena Cava, Percutaneous Approach (ICD-10-PCS; 2023-11-26)
PROC: B548ZZA Ultrasonography of Superior Vena Cava, Guidance (ICD-10-PCS; 2023-11-26)
PROC: 0B9D8ZX Drainage of Right Middle Lung Lobe, Via Natural or Artificial Opening Endoscopic, Diagnostic (ICD-10-PCS; 2023-11-27)
PROC: 5A1D70Z Performance of Urinary Filtration, Intermittent, Less than 6 Hours Per Day (ICD-10-PCS; 2023-11-28)
PROC: 5A1D70Z Performance of Urinary Filtration, Intermittent, Less than 6 Hours Per Day (ICD-10-PCS; 2023-11-29)
PROC: 0BJ08ZZ Inspection of Tracheobronchial Tree, Via Natural or Artificial Opening Endoscopic (ICD-10-PCS; 2023-11-29)
PROC: 5A1D70Z Performance of Urinary Filtration, Intermittent, Less than 6 Hours Per Day (ICD-10-PCS; 2023-12-01)
PROC: 30233N1 Transfusion of Nonautologous Red Blood Cells into Peripheral Vein, Percutaneous Approach (ICD-10-PCS; 2023-12-02)
PROC: 5A1D70Z Performance of Urinary Filtration, Intermittent, Less than 6 Hours Per Day (ICD-10-PCS; 2023-12-04)
DX: A41.9 Sepsis, unspecified organism (principal); G93.41 Metabolic encephalopathy; J96.01 Acute respiratory failure with hypoxia; J10.00 Influenza due to other identified influenza virus with unspecified type of pneumonia; N17.0 Acute kidney failure with tubular necrosis; K56.2 Volvulus; R65.21 Severe sepsis with septic shock; I21.4 Non-ST elevation (NSTEMI) myocardial infarction; J15.69 Pneumonia due to other Gram-negative bacteria; J15.9 Unspecified bacterial pneumonia; K56.7 Ileus, unspecified; E87.20 Acidosis, unspecified; K92.2 Gastrointestinal hemorrhage, unspecified; K55.9 Vascular disorder of intestine, unspecified; M62.82 Rhabdomyolysis; N39.0 Urinary tract infection, site not specified; Z68.42 Body mass index [BMI] 45.0-49.9, adult; Z99.11 Dependence on respirator [ventilator] status; B15.9 Hepatitis A without hepatic coma; D62 Acute posthemorrhagic anemia; E03.9 Hypothyroidism, unspecified; E66.01 Morbid (severe) obesity due to excess calories; K52.9 Noninfective gastroenteritis and colitis, unspecified; N18.9 Chronic kidney disease, unspecified; E78.5 Hyperlipidemia, unspecified; K76.0 Fatty (change of) liver, not elsewhere classified; R74.01 Elevation of levels of liver transaminase levels; E83.51 Hypocalcemia; E83.39 Other disorders of phosphorus metabolism; I12.9 Hypertensive chronic kidney disease with stage 1 through stage 4 chronic kidney disease, or unspecified chronic kidney disease; E11.22 Type 2 diabetes mellitus with diabetic chronic kidney disease; Z20.822 Contact with and (suspected) exposure to COVID-19; E04.1 Nontoxic single thyroid nodule; I48.91 Unspecified atrial fibrillation; R13.10 Dysphagia, unspecified; F11.10 Opioid abuse, uncomplicated; R62.7 Adult failure to thrive; D69.6 Thrombocytopenia, unspecified; R79.89 Other specified abnormal findings of blood chemistry; R54 Age-related physical debility; I25.2 Old myocardial infarction; Z88.5 Allergy status to narcotic agent; Z91.041 Radiographic dye allergy status; Z51.5 Encounter for palliative care; Z74.01 Bed confinement status
CPT/HCPCS: 31622; 31624; 36415; 36569; 36600; 70450; 70490; 70551; 71045; 71250; 74018; 74176; 76536; 76705; 80048; 80053; 80061; 80069; 80074; 80162; 80202; 80307; 80320; 80329; 81001; 82010; 82140; 82270; 82550; 82570; 82607; 82746; 82805; 82962; 83036; 83090; 83605; 83615; 83690; 83735; 83880; 84100; 84300; 84425; 84443; 84478; 84481; 84484; 85007; 85014; 85018; 85025; 85027; 85048; 85610; 85730; 86141; 86592; 86850; 86900; 86901; 86920; 87040; 87045; 87070; 87077; 87081; 87086; 87186; 87205; 87426; 87427; 87493; 87804; 90935; 92507; 92610; 93005; 93306; 93886; 94002; 94003; 94640; 95819; 96361; 96365; 96375; 97110; 97116; 97163; 97530; C9113; G0378; G9035; J0171; J1642; J1815; J2250; J2405; J2543; J3480; J3490; J7060; J7131; P9047